=== PATIENT | male | born 1965 | race Caucasian/White ===

== ENCOUNTER 2024-02-05 09:54 | Outpatient (CLI) | payer OTHER, SELFPAY ==
--- NOTE | 2024-02-05 14:05 | OP.DCCON ---
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 At one point he broke his back and his neck and consequently lives with pain that is around 6-7 on a scale to 1-10. At age 6 he ate chocolate covered walnuts which was the beginning of his allergies, at age 12-13 he became aware of reactions to fruits and vegetables, and around age 18 he reacted to salmon smoked on virch and silke. At one point he mentioned TBI and PTSD r/t time in the [employer]. Height: 5 ft 9 in Weight: 180 lb BMI: 26.6 kg/m2 Weight History: Vinayak said his weight stays between 175-190lbs. Concerns and Goals: He was recently diagnosed with alpha gal and wanted to know if there are any gaps/issue with his current meal plan. Sleep Hygiene: Typically, if his pain is within reason, Vinayak sleeps between 4-8 hours/night - 6 hours is needed, he prefers 8. 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 Feeding Issues: None Meds, Supplements & Other: Vinayak takes Vit D, MV, electrolyte powder in his drinks 24 Hour Recall: Breakfast Time: 5:30am Eggs or oatmeal or bagel w/vegan cream cheese, coffee, water Snack Time: Lunch Time: noon sandwich, homemade sausage w/chicken, or burrito, juice, water Snack Time: Dinner Time: 6-7pm chicken or turkey or shrimp plus veggies, plus carbs Snack Time: Eating Out: They do not eat out d/t allergy issues. Vinayak's has urticaria. Soda vs Milk vs Water: 2-4 cups coffee/day, water, V8 or juice is what Vinayak drinks. Additional Comments: Vinayak's weight has remained WNL. Though he misses red meat he said being strict with his diet is not an issue d/t training. One thing that is bothersome is the need for a nap in the afternoon - he gets really tired. Recommendations: Assessment: Vinayak is highly motivated to do everything he personally can to stay healthy, from his diet to looking into raising Emu's for meat since the taste is similar to red meat, is an acceptable alternative when you have alpha gal, and it is currently expensive/hard to find in [place]. Because his has urticaria, they are very careful with what they eat and raise most everything themselves. He could be a medical underwriter child for how to cope with both oral allergy syndrome and alpha gal. Vinayak's symptoms began before the multiple tick bites he has gotten in [place], which is confounding to him. And the most perplexing is the fatigue he is experiencing as he has always had a lot of energy. Nutrition diagnosis: Altered nutrition related labs d/t symptoms of fatigue and some diarrhea initially AEB testing positive for alpha gal. Interventions: I encouraged Vinayak to remain strict with his diet until July and then try to add back in some of the Mammalian foods and byproducts he has cut out to see if he still reacts to them. We discussed some other foods to include so as not to be bored - though he said he doesn't mind being strict. He has done a lot of research and I will send additional links for him to examine. Monitoring and evaluation: Vinayak will have my email and phone/extension at work for any additional questions. Coding Level of Care Code Nutrition/Individ/Init 30 Min Time Spent (min) 30
== END 2024-02-05 09:55 | disposition home or self-care (01) ==
LOC: DIET 09:55
PROVIDERS: Visit Provider Family Medicine
DX: Z88.8 Allergy status to other drugs, medicaments and biological substances (principal); R53.83 Other fatigue; R19.7 Diarrhea, unspecified
CPT/HCPCS: 97802